=== PATIENT | male | born 2000 | race American Indian/Alaskan Native ===

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

== ENCOUNTER 2022-01-12 12:39 | Emergency (ER) | payer SELFPAY ==
[2022-01-12 13:14] VITALS: BP 132/78
== END 2022-01-12 19:10 | disposition left against medical advice (07) ==
LOC: ED 12:39
DX: R19.7 Diarrhea, unspecified (principal); Z53.21 Procedure and treatment not carried out due to patient leaving prior to being seen by health care provider; R11.10 Vomiting, unspecified